=== PATIENT | female | born 1945 | race Caucasian/White ===

== ENCOUNTER → 2016-07-12 | Outpatient (CLI) | payer OTHER ==
[~2016-07-12] VITALS: Ht 157.5 cm; Wt 62.6 kg
[~2016-07-12] MED LIST: CIPRO500 MG PO; EXCEDRIN EXTRA1 EACH PO; FLOMAX0.4 MG PO; MIRALAX17 GM PO; NOHOMEMEDS; OCUVITE TABLET1 EACH PO; OXYCODONE-ACET1 EACH PO
== END | disposition home or self-care (01) ==
LOC: AMB 09:12
PROC: 0DJD8ZZ Inspection of Lower Intestinal Tract, Via Natural or Artificial Opening Endoscopic (ICD-10-PCS; principal; 2016-07-12)
DX: K57.30 Diverticulosis of large intestine without perforation or abscess without bleeding (principal); K59.00 Constipation, unspecified; Z80.0 Family history of malignant neoplasm of digestive organs; K64.8 Other hemorrhoids; R00.1 Bradycardia, unspecified
CPT/HCPCS: 93005; J0461; J2250; J2405

== ENCOUNTER 2017-05-25 06:26 | Emergency (ER) | payer OTHER ==
[~2017-05-25] VITALS: Ht 154.9 cm; Wt 64.8 kg
[2017-05-25 06:42] LABS: APPEARANCE SL.HAZY ((CLEAR)); BILIRUBIN NEGATIVE; BLOOD MODERATE; COLOR YELLOW ((YELLOW)); GLUCOSE (STRIP) NEGATIVE; KETONES NEGATIVE; LEUKOCYTES MODERATE; NITRITE NEGATIVE; PROTEIN (STRIP) 30; SPECIFIC GRAVITY 1.014 (1.000-1.030); UROBILINOGEN 0.2 MG/DL (0.2-1.0)
[2017-05-25 06:47] LABS: BACTERIA RARE /HPF; EPITHELIAL CELLS RARE /HPF; MUCUS TRACE /LPF; UCUL ADDED? YES; WHITE BLOOD CELLS 30-40 /HPF (0-5)
[2017-05-25 07:48] LABS: HEMATOCRIT 33.9 % (36.0-46.0); HEMOGLOBIN 11.5 G/DL (11.9-15.5); MCH 30.3 PG (29.0-34.0); MCHC 33.9 G/DL (30.0-36.0); MCV 89.2 FL (83-99); PLATELET COUNT 263 K/uL (156-360); RBC DIS.WIDTH-CV 13.5 % (11.8-14.6); RBC DIS.WIDTH-SD 43.8 % (39-53); WHITE BLOOD COUNT 9.5 K/uL (4.1-10.2)
[2017-05-25 08:21] LABS: CHLORIDE 103 MEQ/L (99-109); POTASSIUM 3.9 MEQ/L (3.7-5.4); SODIUM 138 MEQ/L (136-147); TOTAL BILIRUBIN 0.7 MG/DL (0.0-1.0)
[2017-05-25 08:27] LABS: ALKALINE PHOSPHATASE 83 IU/L (3-129); ALT (GPT) 20 IU/L (3-49); AST (GOT) 34 IU/L (2-34); CREATININE 0.7 MG/DL (0.6-1.3); GFR ESTIMATE (CALCULATED) > 59 mL/min/; GLUCOSE 132 mg/dL (70-99); TOTAL PROTEIN 7.3 G/DL (6.4-8.3); UREA NITROGEN (BUN) 16 mg/dL (9-23)
[2017-05-25] MEDS ORDERED: FLOMAX0.4 MG PO (09:33)
[2017-05-25] MEDS ORDERED: CIPRO500 MG PO (09:33)
[2017-05-25] MEDS ORDERED: ZOFRAN ODT4 MG PO (09:33)
[2017-05-25 09:43] VITALS: BP 124/69
== END 2017-05-25 09:46 | disposition home or self-care (01) ==
LOC: EME 06:26
DX: N20.0 Calculus of kidney (principal); N39.0 Urinary tract infection, site not specified; K40.90 Unilateral inguinal hernia, without obstruction or gangrene, not specified as recurrent; Z87.442 Personal history of urinary calculi
CPT/HCPCS: 74176; 80053; 81003; 85027; 87077; 87086; 87186; 99281; 99285; J1885; J2405; J7030

== ENCOUNTER → 2017-06-13 | Outpatient (CLI) | payer OTHER ==
[~2017-06-13] MED LIST changes: +ZOFRAN ODT4 MG PO
== END | disposition home or self-care (01) ==
LOC: NUC 10:37
DX: N13.4 Hydroureter (principal)
CPT/HCPCS: 78709; A9562; J1940